=== PATIENT | female | born 1960 | race Caucasian/White ===

== ENCOUNTER 2021-07-17 09:44 | Emergency (ER) | payer MEDICAID, OTHER ==
[~2021-07-17] VITALS: Ht 170.2 cm; Wt 68.0 kg
[2021-07-17 16:39] VITALS: BP 130/82
== END 2021-07-17 16:40 | disposition home or self-care (01) ==
LOC: ER 09:44
DX: L03.311 Cellulitis of abdominal wall (principal)

== ENCOUNTER 2023-10-06 08:29 | Emergency (ER) | payer MEDICAID ==
[~2023-10-06] VITALS: Ht 165.1 cm; Wt 55.0 kg
[~2023-10-06 08:29] MED LIST: NITR-87 PO
[2023-10-06 09:30] LABS: Urine Bacteria None Seen /hpf (None Seen)
[2023-10-06 09:42] LABS: Urine Blood Negative /uL (Negative); Urine Clarity Turbid (Clear); Urine Color Yellow (Yellow); Urine Mucus FEW (None Seen); Urine Protein, UAD TRACE (Negative); Urine Specific Gravity 1.023 (1.001-1.035); Urine Urobilinogen Normal (Negative); Urine WBC 13 /hpf (0 - 5); Urine pH 5.5 (5.0-9.0)
[2023-10-06] MEDS ORDERED: CIPR-173 PO (12:15)
[2023-10-06] MEDS ORDERED: HYDR-4902 PO (12:15)
[2023-10-06 12:29] VITALS: BP 129/82; PULSE 81; RESP 18; O2SAT 98
[2023-10-06] MEDS ORDERED: TRAM50TA2 PO (12:40)
== END 2023-10-06 12:45 | disposition home or self-care (01) ==
LOC: ER 08:29
DX: N39.0 Urinary tract infection, site not specified (principal); F17.210 Nicotine dependence, cigarettes, uncomplicated
CPT/HCPCS: 74176; 81001